=== PATIENT | female | born 1985 | race Caucasian/White ===

== ENCOUNTER 2018-06-13 16:10 | Emergency (ER) | payer OTHER ==
[~2018-06-13] VITALS: Ht 182.9 cm; Wt 117.0 kg
--- NOTE | 2018-06-13 17:09 | NUR ---
FROM LOBBY TO ROOM
[2018-06-13 17:24] LABS: ALBUMIN 3.8 g/dL (3.4-5.0); ANION GAP 5 mmol/L (5-15); CALCIUM 8.8 mg/dL (8.5-10.1); CHLORIDE 108 mmol/L (98-107)
[2018-06-13 17:31] LABS: ALANINE AMINOTRANSFERASE 40 U/L (12-78); ALKALINE PHOSPHATASE 75 U/L (45-117); BILIRUBIN,TOTAL 0.3 mg/dL (0.2-1.0); CREATININE 1.14 mg/dL (0.55-1.02); TOTAL PROTEIN 8.2 g/dL (6.4-8.2); TROPONIN I < 0.015 ng/mL (0.000-0.045)
[2018-06-13 18:07] LABS: BASOPHILS # (AUTO) 0.04 x10^3/uL (0-0.1); BASOPHILS % (AUTO) 0 % (0-1); EOSINOPHILS # (AUTO) 0.07 x10^3/uL (0-0.4); EOSINOPHILS % (AUTO) 1 % (1-7); LYMPHOCYTES % (AUTO) 23 % (22-44); MD NO; MEAN CORPUSCULAR HEMOGLOBIN 27.3 pg (27.0-34.8); MEAN CORPUSCULAR HGB CONC 33.5 g/dL (32.4-35.8); MEAN CORPUSCULAR VOLUME 81.5 fL (80-100); MEAN PLATELET VOLUME 8.5 fL (7.4-10.4); MONOCYTES # (AUTO) 0.66 x10^3/uL (0.2-0.8); MONOCYTES % (AUTO) 6 % (2-9); NEUTROPHILS # (AUTO) 7.39 x10^3/uL (1.8-6.8); NEUTROPHILS % (AUTO) 70 % (42-75); PLATELET COUNT 351 x10^3/uL (130-400); RED CELL DISTRIBUTION WIDTH 14.8 % (9.6-15.2)
[2018-06-13] MEDS ORDERED: LOSARTAN 50MG TABLET PO ONE (18:30)
--- NOTE | 2018-06-13 18:53 | NUR ---
HIGH BLOOD PRESSURE, 170/130 AT HOME. +SOB DENIES CP/LEVI HX OF HTN W/ PREECLAMPSIA, LAST TWO YEARS AGO PER TRIAGE NOTE
--- NOTE | 2018-06-13 19:08 | NUR ---
[facility] HAND-OFF REPORT TO ANNE FOSTER.
--- NOTE | 2018-06-13 19:33 | NUR ---
GIVEN DC INSTRUCTION WITH BP MED PRESCRIPTION PT UNDERSTOOD PT UP AMBULATED TO CHECK OUT
[2018-06-13 19:34] VITALS: BP 121/124
== END 2018-06-13 19:39 ==
LOC: ED 19:17
DX: I10 Essential (primary) hypertension (principal)
CPT/HCPCS: 36415; 71045; 80053; 84484; 84703; 85025; 93005; 99284